=== PATIENT | male | born 1995 | race Caucasian/White ===

== ENCOUNTER 2021-12-16 02:30 | Emergency (ER) | payer SELFPAY ==
[~2021-12-16] VITALS: Ht 180.3 cm; Wt 81.8 kg
[2021-12-16 02:30] VITALS: BP 138/77
--- NOTE | 2021-12-16 02:33 | PHYS DOC ---
Past Medical History Past Medical History IV drug use, polysubstance Past Surgical History: No Surgical History Smoking Status: Current Every Day Smoker Alcohol Use: None Drug Use: Heroin, Marijuana, Methamphetamine General Adult EDM: Chief Complaint: OVERDOSE HPI: HPI: Patient is a 26 year old male who presents here via EMS after reported heroin overdose. The patient was found to be nearly apneic, but was not pulseless. He was given a total of 2 mg of Narcan, after which time he awoke briskly. The patient has vomited several times, continues to report nausea and is vomiting on arrival. He admits to injecting heroin, he also admits to IV methamphetamine use. He reports that he had been clean from opioids for about 2 years, and he reports that he "only used a little" tonight. Denies chest pain or dyspnea. He denies abdominal pain. He denies headache. He denies that he was trying to harm himself, denies any intentional overdose. Denies SI or HI. Review of Systems: Review of Systems: As per HPI Heart Score: C/O Chest Pain: No Risk Factors: Risk Factors: DM, Current or recent (<one month) smoker, HTN, HLP, family history of CAD, obesity. Risk Scores: Score 0 - 3: 2.5% MACE over next 6 weeks - Discharge Home Score 4 - 6: 20.3% MACE over next 6 weeks - Admit for Clinical Observation Score 7 - 10: 72.7% MACE over next 6 weeks - Early Invasive Strategies Allergies: Allergies: Allergies Coded Allergies Type Severity Reaction Last Updated Verified No Known Drug Allergies 09/09/14 No Physical Exam: PE: Constitutional: He is frail appearing, nontoxic, appears older than stated age, somewhat disheveled. HENT: Normocephalic, atraumatic, oropharynx is patent and clear, mucous members are moist. External ears normal bilaterally. No otorrhea. Eyes: PERRL, EOMI, conjunctiva normal, no discharge. No scleral icterus. No nystagmus. Neck: Normal range of motion, no tenderness, supple, no stridor. Trachea is midline. No JVD. Cardiovascular:Heart rate regular rhythm, +2 radial +2 posterior tibial pulses bilaterally Lungs & Thorax: Bilateral breath sounds clear to auscultation, no rales, rhonchi or wheezes. No evidence of respiratory distress. Abdomen: Abdomen is soft, nondistended, nontender to palpation. Skin: Warm, dry, no erythema, no rash. No open wounds, no lacerations. Back: No tenderness, no CVA tenderness. [] Extremities: No tenderness, no cyanosis, no clubbing, ROM intact, no edema. No limb deformity. No tenderness. Neurologic: Alert and oriented X 3, normal motor function, normal sensory functi on, no focal deficits noted. [] Psychologic: Affect somewhat anxious, he is overall cooperative. EKG: EKG: EKG is interpreted at 0253 Rhythm is sinus Rate is 83 bpm [place] is normal No STEMI Radiology/Procedures: Radiology/Procedures: [] Course & Med Decision Making: Course & Med Decision Making Pertinent Labs and Imaging studies reviewed. (See chart for details) Patient is given IV fluids and IV Zofran. He vomited several times, but ultimately started feeling much better. He is able to tolerate oral fluids well. After greater than 3 hours observation, he remains hemodynamically stable, oxygen saturation stable, he is awake, alert, fully oriented, ambulatory with a brisk and steady gait. No indication for further invasive exams, imaging or admission at this time. He has not required subsequent doses of IV Narcan. He feels comfortable going home, he is going to go home with his significant other. He had already has outpatient resources for substance abuse. He reports that he has a primary care physician as well. I encouraged him to follow-up. Return precautions are given. He is discharged in stable and improved condition. Alireza Disclaimer: Alireza Disclaimer: This electronic medical record was generated, in whole or in part, using a voice recognition dictation system. Departure Departure Impression: Primary Impression: Opioid overdose Qualified Codes: T40.2X1A - Poisoning by other opioids, accidental (unintentional), initial encounter Disposition: HOME / SELF CARE / HOMELESS Condition: STABLE Referrals: NO PCP (PCP) Patient Instructions: Drug Abuse and Addiction-SportsMed, Drug Abuse, FAQs, Opiate Dependence Additional Instructions: Return to the ER immediately for chest pain, shortness of breath, uncontrolled vomiting, dehydration, focal weakness, if you are acutely injured or sustained any trauma, or any other concerns. Please avoid use of illicit drugs, especially opioids, because this can lead to . Please follow-up with a primary care physician and with the drug abuse resources you have at home. Scripts Ondansetron (ONDANSETRON ODT) 4 Mg Tab.rapdis 1 TAB PO PRN Q6-8HRS for nausea and vomiting, #20 TAB Prov: ORVILLE PRECIADO DO 12/16/21 ORVILLE PRECIADO DO Dec 16, 2021 02:33
[2021-12-16] MEDS ORDERED: ONDANSETRON PF 4 MG/2 ML VIAL. IVP ONE (03:00)
[2021-12-16] MEDS ORDERED: IV NORMAL SALINE 1000ML BAG 1,000 ML IV ONE (03:00)
[2021-12-16 03:45] LABS: BASO % 1 % (0-3); EOS # 0.2 x10^3/uL (0.0-0.7); EOS % 4 % (0-3); HEMATOCRIT 41.4 % (39.0-53.0); HEMOGLOBIN 13.5 g/dL (13.0-17.5); LYMPH # 0.7 x10^3/uL (1.0-4.8); LYMPH % 12 % (24-48); MEAN CORPUSCULAR HEMOGLOBIN 29 pg (25-35); MEAN CORPUSCULAR HGB CONC 33 g/dL (31-37); MEAN CORPUSCULAR VOLUME 89 fL (79-100); MONO # 0.4 x10^3/uL (0.0-1.1); MONO % 8 % (0-9); NEUT # 4.4 x10^3/uL (1.8-7.7); NEUT % 76 % (31-73); PLATELET COUNT 467 x10^3/uL (140-400); RED BLOOD COUNT 4.63 x10^6/uL (4.30-5.70); RED CELL DISTRIBUTION WIDTH 13.6 % (11.5-14.5); WHITE BLOOD COUNT 5.8 x10^3/uL (4.0-11.0)
[2021-12-16 03:53] LABS: AMPHETAMINE/METHAMPHETAMINE POS (NEG); BARBITURATES NEG (NEG); BENZODIAZEPINES NEG (NEG); CALCIUM 8.2 mg/dL (8.5-10.1); CANNABINOIDS POS (NEG); COCAINE NEG (NEG); CREATININE 1.2 mg/dL (0.7-1.3); GFR 73.2; METHADONE NEG (NEG); OPIATES NEG (NEG); PHENCYCLIDINE NEG (NEG); POTASSIUM 3.8 mmol/L (3.5-5.1)
[2021-12-16 03:57] LABS: AMORPHOUS SEDIMENT,UR PRESENT /HPF; BACTERIA,URINE FEW /HPF (0-FEW); HYALINE CASTS, URINE OCCASIONAL /HPF; RBC,URINE 0 /HPF (0-2); SPERM,URINE PRESENT /HPF
[2021-12-16 03:58] LABS: ACETAMIN < 2 mcg/ml (10-30); ETHANOL < 10 mg/dL (0-10); SALIC 0.9 mg/dL (2.8-20.0)
--- NOTE | 2021-12-16 03:58 | EKG ---
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
[2021-12-16 03:59] LABS: ALBUMIN 3.3 g/dL (3.4-5.0); ALBUMIN/GLOBULIN RATIO 1.2 (1.0-1.7); TOTAL BILIRUBIN 0.6 mg/dL (0.2-1.0); TOTAL PROTEIN 6.1 g/dL (6.4-8.2)
[2021-12-16] MEDS ORDERED: ONDA4TAB12 PO (06:13)
== END 2021-12-16 06:20 | disposition home or self-care (01) ==
LOC: ER 02:30
DX: T40.1X1A Poisoning by heroin, accidental (unintentional), initial encounter (principal); R11.10 Vomiting, unspecified; R06.81 Apnea, not elsewhere classified; Y92.89 Other specified places as the place of occurrence of the external cause; F17.200 Nicotine dependence, unspecified, uncomplicated
CPT/HCPCS: 36415; 80053; 80307; 80329; 81001; 83690; 83735; 85025; 87086; 93005; 96361; 96374; 99285; G0480; J2405; J7030

== ENCOUNTER 2022-01-03 03:39 | Emergency (ER) | payer SELFPAY ==
[~2022-01-03] VITALS: Ht 177.8 cm; Wt 57.7 kg
[~2022-01-03 03:39] MED LIST: ONDA4TAB12 PO
[2022-01-03] MEDS ORDERED: ONDANSETRON PF 4 MG/2 ML VIAL. IVP ONE (03:45)
[2022-01-03] MEDS ORDERED: IV NORMAL SALINE 1000ML BAG 1,000 ML IV ONE (03:45)
--- NOTE | 2022-01-03 03:52 | PHYS DOC ---
Past Medical History Past Surgical History: No Surgical History (GUERDA EUCEDA MD) Smoking Status: Current Every Day Smoker Alcohol Use: None Drug Use: Heroin, Marijuana, Methamphetamine (GUERDA EUCEDA MD) Adult General Chief Complaint Chief Complaint: OVERDOSE HPI HPI 26-year-old male with a history of polysubstance abuse presents for evaluation following an overdose of IV heroin. Girlfriend called after he became obtunded at the motel where they were staying. Bradypneic and unresponsive upon EMS arrival but awoke immediately with 2 mg of IV Narcan. Review of records reveals that patient was here about two weeks ago for the same issue. He denies habitual heroin abuse but is gaunt and has track bolton noted to bilateral ACs. States intent of heroin use was recreational and not self-harm. He is alert, appropriately interactive, oriented x4 and denies complaints. (GUERDA EUCEDA MD) Review of Systems Review of Systems A 12 point review of systems was completed and was negative except where noted in HPI above. (GUERDA EUCEDA MD) Current Medications Current Medications Current Medications Medications (Trade) Dose Ordered Sig/Cathie Start Time Stop Time Status Last Admin Dose Admin Ondansetron HCl (Zofran) 4 mg 1X ONCE 01/03/22 03:45 01/03/22 03:46 DC 01/03/22 03:52 4 MG Sodium Chloride 1,000 ml @ 1,000 mls/hr 1X ONCE 01/03/22 03:45 01/03/22 04:44 DC 01/03/22 03:53 1,000 MLS/HR (LORENA MANZANARES DO) Allergies Allergies Allergies Coded Allergies Type Severity Reaction Last Updated Verified No Known Drug Allergies 12/16/21 No (LORENA MANZANARES DO) Physical Exam Physical Exam 26-year-old male appearing nontoxic and in no acute distress. He is gaunt and pale and has track bolton noted to bilateral arms. Head is normocephalic and atr aumatic. Neck is supple and nontender. Oropharynx is moist. Lungs are clear to auscultation at all stations. There is normal S1-S2 without rubs or gallops and capillary refill is appropriate, less than 2 seconds globally. Abdomen is soft, nontender and nondistended. Skin is warm dry without cyanosis, clubbing or edema. Psychiatrically, patient demonstrates appropriate mood and affect and is alert. (GUERDA EUCEDA MD) Current Patient Data Vital Signs Vital Signs Date Time Temp Pulse Resp B/P (MAP) Pulse Ox O2 Delivery O2 Flow Rate FiO2 01/03/22 06:38 88 16 136/73 (94) 95 Room Air 01/03/22 03:40 97.6 97.6 (LORENA MANZANARES DO) Lab Values Laboratory Tests Test 01/03/22 03:55 01/03/22 07:13 White Blood Count 4.7 x10^3/uL (4.0-11.0) Red Blood Count 4.83 x10^6/uL (4.30-5.70) Hemoglobin 14.4 g/dL (13.0-17.5) Hematocrit 43.0 % (39.0-53.0) Mean Corpuscular Volume 89 fL (79-100) Mean Corpuscular Hemoglobin 30 pg (25-35) Mean Corpuscular Hemoglobin Concent 34 g/dL (31-37) Red Cell Distribution Width 14.0 % (11.5-14.5) Platelet Count 421 x10^3/uL (140-400) H Sodium Level 140 mmol/L (136-145) Potassium Level 3.8 mmol/L (3.5-5.1) Chloride Level 104 mmol/L (98-107) Carbon Dioxide Level 29 mmol/L (21-32) Anion Gap 7 (6-14) Blood Urea Nitrogen 16 mg/dL (8-26) Creatinine 1.1 mg/dL (0.7-1.3) Estimated GFR (Cockcroft-Gault) 80.9 BUN/Creatinine Ratio 15 (6-20) Glucose Level 112 mg/dL (70-99) H Calcium Level 8.9 mg/dL (8.5-10.1) Total Bilirubin 0.7 mg/dL (0.2-1.0) Aspartate Amino Transferase (AST) 28 U/L (15-37) Alanine Aminotransferase (ALT) 31 U/L (16-63) Alkaline Phosphatase 63 U/L (46-116) Total Protein 6.7 g/dL (6.4-8.2) Albumin 3.7 g/dL (3.4-5.0) Albumin/Globulin Ratio 1.2 (1.0-1.7) Salicylates Level 0.9 mg/dL (2.8-20.0) L Salicylate Last Dose Date Unk Salicylate Last Dose Time Unk Acetaminophen Level < 2 mcg/ml (10-30) L Acetaminophen Last Dose Date Unk Acetaminophen Last Dose Time Unk Ethyl Alcohol Level < 10 mg/dL (0-10) Urine Opiates Screen Neg (NEG) Urine Methadone Screen Neg (NEG) Urine Barbiturates Neg (NEG) Urine Phencyclidine Screen Neg (NEG) Urine Amphetamine/Methamphetamine Pos (NEG) Urine Benzodiazepines Screen Neg (NEG) Urine Cocaine Screen Neg (NEG) Urine Cannabinoids Screen Pos (NEG) Urine Ethyl Alcohol Neg (NEG) Laboratory Tests 01/03/22 03:55 Laboratory Tests 01/03/22 03:55 (LORENA MANZANARES DO) Lab Values Laboratory Tests Test 01/03/22 03:55 White Blood Count 4.7 x10^3/uL (4.0-11.0) Red Blood Count 4.83 x10^6/uL (4.30-5.70) Hemoglobin 14.4 g/dL (13.0-17.5) Hematocrit 43.0 % (39.0-53.0) Mean Corpuscular Volume 89 fL (79-100) Mean Corpuscular Hemoglobin 30 pg (25-35) Mean Corpuscular Hemoglobin Concent 34 g/dL (31-37) Red Cell Distribution Width 14.0 % (11.5-14.5) Platelet Count 421 x10^3/uL (140-400) H Sodium Level 140 mmol/L (136-145) Potassium Level 3.8 mmol/L (3.5-5.1) Chloride Level 104 mmol/L (98-107) Carbon Dioxide Level 29 mmol/L (21-32) Anion Gap 7 (6-14) Blood Urea Nitrogen 16 mg/dL (8-26) Creatinine 1.1 mg/dL (0.7-1.3) Estimated GFR (Cockcroft-Gault) 80.9 BUN/Creatinine Ratio 15 (6-20) Glucose Level 112 mg/dL (70-99) H Calcium Level 8.9 mg/dL (8.5-10.1) Total Bilirubin 0.7 mg/dL (0.2-1.0) Aspartate Amino Transferase (AST) 28 U/L (15-37) Alanine Aminotransferase (ALT) 31 U/L (16-63) Alkaline Phosphatase 63 U/L (46-116) Total Protein 6.7 g/dL (6.4-8.2) Albumin 3.7 g/dL (3.4-5.0) Albumin/Globulin Ratio 1.2 (1.0-1.7) Salicylates Level 0.9 mg/dL (2.8-20.0) L Salicylate Last Dose Date Unk Salicylate Last Dose Time Unk Acetaminophen Level < 2 mcg/ml (10-30) L Acetaminophen Last Dose Date Unk Acetaminophen Last Dose Time Unk Ethyl Alcohol Level < 10 mg/dL (0-10) Laboratory Tests 01/03/22 03:55 Laboratory Tests 01/03/22 03:55 (GUERDA EUCEDA MD) EKG EKG [] (GUERDA EUCEDA MD) Radiology/Procedures Radiology/Procedures [] (GUERDA EUCEDA MD) Course & Med Decision Making Course & Med Decision Making Heroin overdose revived with Narcan. Alert and oriented. Will check basic labs and toxicology studies and will give IV fluids and Zofran and will observe to ensure no re-sedation. Anticipate discharge if ED observation goes well. Patient understands and agrees with this plan of care. 0600: Labs unremarkable. Urine tox screen still pending. Patient wakes up without difficulty to voice. Transition of care at this time to Dr. Manzanares pending continued observation with a plan to discharge if no significant sedation occur s. Critical care time was 38 minutes for severe opiate overdose requiring parenteral antidote administration. (GUERDA EUCEDA MD) Course & Med Decision Making Case was endorsed to me from Dr. Euceda, pending sobriety. Patient is hemodynamically stable. Patient in [place] with his girlfriend sleeping. Maintaining airway. AOx3 no suicidality (LORENA MANZANARES DO) Dragon Disclaimer Dragon Disclaimer This electronic medical record was generated, in whole or in part, using a voice recognition dictation system. (GUERDA EUCEDA MD) Departure Departure Impression: Primary Impression: Accidental heroin overdose Condition: STABLE Referrals: NO PCP (PCP) Problem Qualifiers Primary Impression: Accidental heroin overdose Encounter type: initial encounter Qualified Codes: T40.1X1A - Poisoning by heroin, accidental (unintentional), initial encounter GUERDA EUCEDA MD Jan 03, 2022 03:52 LORENA MANZANARES DO Jan 03, 2022 08:00
[2022-01-03 04:02] LABS: HEMOGLOBIN 14.4 g/dL (13.0-17.5); RED BLOOD COUNT 4.83 x10^6/uL (4.30-5.70); WHITE BLOOD COUNT 4.7 x10^3/uL (4.0-11.0)
[2022-01-03 04:09] LABS: CALCIUM 8.9 mg/dL (8.5-10.1); CREATININE 1.1 mg/dL (0.7-1.3); GFR 80.9; POTASSIUM 3.8 mmol/L (3.5-5.1)
[2022-01-03 04:15] LABS: ALBUMIN 3.7 g/dL (3.4-5.0); ALBUMIN/GLOBULIN RATIO 1.2 (1.0-1.7); TOTAL BILIRUBIN 0.7 mg/dL (0.2-1.0); TOTAL PROTEIN 6.7 g/dL (6.4-8.2)
[2022-01-03 04:17] LABS: ACETAMIN < 2 mcg/ml (10-30); ETHANOL < 10 mg/dL (0-10); SALIC 0.9 mg/dL (2.8-20.0)
[2022-01-03 07:42] LABS: BARBITURATES NEG (NEG); BENZODIAZEPINES NEG (NEG); CANNABINOIDS POS (NEG); COCAINE NEG (NEG); METHADONE NEG (NEG); OPIATES NEG (NEG); PHENCYCLIDINE NEG (NEG)
[2022-01-03 07:43] LABS: AMPHETAMINE/METHAMPHETAMINE POS (NEG)
[2022-01-03 08:08] VITALS: BP 131/76
== END 2022-01-03 08:21 | disposition home or self-care (01) ==
LOC: ER 03:39
DX: T40.1X1A Poisoning by heroin, accidental (unintentional), initial encounter (principal); F17.200 Nicotine dependence, unspecified, uncomplicated; Y92.89 Other specified places as the place of occurrence of the external cause
CPT/HCPCS: 36415; 80053; 80307; 80329; 85027; 96361; 96374; 99291; G0480; J2405; J7030